=== PATIENT | male | born 1980 | race Caucasian/White ===

== ENCOUNTER 2018-07-31 12:18 | Emergency (ER) | payer SELFPAY ==
--- NOTE | 2018-07-31 12:44 | EDM.PDOC ---
ED HPI GENERAL MEDICAL PROBLEM - General Chief Complaint: ENT Problem Stated Complaint: FLU Time Seen by Provider: 07/31/18 12:43 Source of Information: Reports: Patient History Limitations: Reports: No Limitations - History of Present Illness INITIAL COMMENTS - FREE TEXT/NARRATIVE: HISTORY AND PHYSICAL: History of present illness: Patient is a 37-year-old male here with complaint of flulike symptoms 3 days. He states he's had vomiting, diarrhea, along with a mild cough, congestion. He denies fevers, chills, chest pain, shortness of breath, abdominal pain, urinary or bowel symptoms. Reports history of hypertension but otherwise healthy. Review of systems: As per history of present illness and below otherwise all systems reviewed and negative. Past medical history: As per history of present illness and as reviewed below otherwise noncontributory. Surgical history: As per history of present illness and as reviewed below otherwise noncontributory. Social history: No reported history of drug or alcohol abuse. Family history: As per history of present illness and as reviewed below otherwise noncontributory. Physical exam: General: Patient sitting comfortably in no acute distress and nontoxic appearing HEENT: Atraumatic, normocephalic, pupils reactive, negative for conjunctival pallor or scleral icterus, mucous membranes moist, throat clear, neck supple, nontender, trachea midline. No meningeal signs. Lungs: Clear to auscultation, breath sounds equal bilaterally, chest nontender. Heart: S1S2, regular, negative for clicks, rubs, or overt murmur. Abdomen: Soft, nondistended, nontender. Negative for masses or hepatosplenomegaly. Negative for costovertebral tenderness. Pelvis: Stable nontender. Genitourinary: Deferred. Rectal: Deferred. Extremities: Atraumatic, negative for cords or calf pain. Neurovascular unremarkable. Neuro: Awake, alert, oriented. Cranial nerves II through XII unremarkable. Cerebellum unremarkable. Motor and sensory unremarkable throughout. Exam nonfocal. Notes: Diagnostics: Influenza Therapeutics: None Prescriptions: Zofran Impression: Viral gastroenteritis Plan: 1. Drink plenty of small sips of fluids on the day and bland food as tolerated. Alternate Tylenol and Motrin as needed 2. Follow-up with primary care provider. 3. Return to ED as needed as discussed Definitive disposition and diagnosis as appropriate pending reevaluation and review of above. Generalized Pain Score (Numeric/FACES): 6 - Related Data Allergies Allergy/AdvReac Type Severity Reaction Status Date / Time No Known Allergies Allergy Verified 07/31/18 12:29 Home Meds: Home Meds Ondansetron [Zofran ODT] 4 mg PO Q6H PRN #10 tab.dis 07/31/18 [Rx] Past Medical History HEENT History: Reports: None Cardiovascular History: Reports: Hypertension Respiratory History: Reports: None Gastrointestinal History: Reports: None Genitourinary History: Reports: None Musculoskeletal History: Reports: None Neurological History: Reports: None Psychiatric History: Reports: None Endocrine/Metabolic History: Reports: None Hematologic History: Reports: None Immunologic History: Reports: None Oncologic (Cancer) History: Reports: None Dermatologic History: Reports: None - Infectious Disease History Infectious Disease History: Reports: Chicken Pox - Past Surgical History Head Surgeries/Procedures: Reports: None Social & Family History - Family History Family Medical History: Noncontributory - Tobacco Use Smoking Status *Q: Never Smoker Second Hand Smoke Exposure: No - Caffeine Use Caffeine Use: Reports: Coffee - Recreational Drug Use Recreational Drug Use: Yes Recreational Drug Type: Reports: Marijuana/Hashish ED ROS ENT - Review of Systems Review Of Systems: ROS reveals no pertinent complaints other than HPI. ED EXAM, ENT - Physical Exam Exam: See Below (See dictation) Course - Vital Signs Last Recorded V/S: Last Vital Signs Temp 97.6 F 07/31/18 12:29 Pulse 102 H 07/31/18 12:29 Resp 16 07/31/18 12:29 BP 152/91 H 07/31/18 12:29 Pulse Ox 96 07/31/18 12:29 Departure - Departure Time of Disposition: 13:15 Disposition: Home, Self-Care 01 Condition: Good Clinical Impression: Viral gastroenteritis - Discharge Information Prescriptions: Ondansetron [Zofran ODT] 4 mg PO Q6H PRN #10 tab.dis PRN Reason: Nausea/Vomiting Referrals: PCP,None [Primary Care Provider] - Forms: ED Department Discharge Additional Instructions: The following information is given to patients seen in the emergency department who are being discharged to home. This information is to outline your options for follow-up care. We provide all patients seen in our emergency department with a follow-up referral. The need for follow-up, as well as the timing and circumstances, are variable depending upon the specifics of your emergency department visit. If you don't have a primary care physician on staff, we will provide you with a referral. We always advise you to contact your personal physician following an emergency department visit to inform them of the circumstance of the visit and for follow-up with them and/or the need for any referrals to a consulting specialist. The emergency department will also refer you to a specialist when appropriate. This referral assures that you have the opportunity for follow-up care with a specialist. All of these measure are taken in an effort to provide you with optimal care, which includes your follow-up. Under all circumstances we always encourage you to contact your private physician who remains a resource for coordinating your care. When calling for follow-up care, please make the office aware that this follow-up is from your recent emergency room visit. If for any reason you are refused follow-up, please contact the [facility] Emergency Department at and asked to speak to the emergency department charge nurse. [facility] [address] [place] [id number] [address] [address] 1. Drink plenty of small sips of fluids on the day and bland food as tolerated. Alternate Tylenol and Motrin as needed 2. Follow-up with primary care provider. 3. Return to ED as needed as discussed
== END 2018-07-31 13:45 | disposition home or self-care (01) ==
LOC: MW.ED 12:18
DX: A08.4 Viral intestinal infection, unspecified (principal)
CPT/HCPCS: 87804; 99282; 99284

== ENCOUNTER 2018-09-26 16:50 | Emergency (ER) | payer SELFPAY ==
--- NOTE | 2018-09-26 16:56 | EDM.PDOC ---
ED HPI GENERAL MEDICAL PROBLEM - General Chief Complaint: General Stated Complaint: ANXIETY Time Seen by Provider: 09/26/18 16:55 Source of Information: Reports: Patient History Limitations: Reports: No Limitations - History of Present Illness INITIAL COMMENTS - FREE TEXT/NARRATIVE: HISTORY AND PHYSICAL: History of present illness: Patient is a 38-year-old male who presents to the emergency room today with complaints of panic attacks. Patient reports he has a history of PTSD, anxiety and depression. He has previously been on medications but failed to follow up to get them refilled. He also did behavioral and talk therapy previously. [place] and has yet to establish care with a primary care provider for evaluation/ management of his anxiety. He states that his panic attacks have been happening every one to 3 days lasting approximately 30 minutes to several hours. He states he is able to remove himself from the situation and calm himself down but it has been interfering with his ADLs. He denies any thoughts of self-harm or harm of others. Review of systems: As per history of present illness and below otherwise all systems reviewed and negative. Past medical history: As per history of present illness and as reviewed below otherwise noncontributory. Surgical history: As per history of present illness and as reviewed below otherwise noncontributory. Social history: See social history for further information Family history: As per history of present illness and as reviewed below otherwise noncontributory. Physical exam: General: Well-developed and well-nourished 38-year-old male. Alert and oriented. Nontoxic appearing and in no acute distress. HEENT: Atraumatic, normocephalic, pupils equal and reactive bilaterally, negative for conjunctival pallor or scleral icterus, mucous membranes moist, TMs normal bilaterally, throat clear, neck supple, nontender, trachea midline. No drooling or trismus noted. No meningeal signs. No hot potato voice noted. Lungs: Clear to auscultation, breath sounds equal bilaterally, chest nontender. Heart: S1S2, regular rate and rhythm without overt murmur Abdomen: Soft, nondistended, nontender. Negative for masses or hepatosplenomegaly. Negative for costovertebral tenderness. Pelvis: Stable nontender. Genitourinary: Deferred. Rectal: Deferred. Skin: Intact, warm, dry. No lesions or rashes noted. Extremities: Atraumatic, moves all extremities per self without difficulty or deficits, negative for cords or calf pain. Neurovascular unremarkable. Neuro: Awake, alert, oriented. Cranial nerves II through XII unremarkable. Cerebellum unremarkable. Motor and sensory unremarkable throughout. Exam nonfocal. Notes: I did offer to do routine lab work including a TSH which he declines at this time. We discussed the need for appropriate follow-up and management with primary care. We'll give him the numbers for this for follow-up. Supportive care measures were reviewed and discussed. Voices understanding and is agreeable to plan of care. Denies any further questions or concerns at this time. Diagnostics: None Therapeutics: None Prescription: Ativan 0.5mg PRN (#8) Impression: Anxiety History of PTSD Plan: 1. Take medication as directed. 2. Establish care with a primary care provider as we discussed. Return to the ED as needed and as discussed. Definitive disposition and diagnosis as appropriate pending reevaluation and review of above. - Related Data Allergies Allergy/AdvReac Type Severity Reaction Status Date / Time No Known Allergies Allergy Verified 07/31/18 12:29 Home Meds: Home Meds . [No Known Home Meds] 09/26/18 [History] Past Medical History HEENT History: Reports: None Cardiovascular History: Reports: Hypertension Respiratory History: Reports: None Gastrointestinal History: Reports: None Genitourinary History: Reports: None Musculoskeletal History: Reports: None Neurological History: Reports: None Psychiatric History: Reports: None Endocrine/Metabolic History: Reports: None Hematologic History: Reports: None Immunologic History: Reports: None Oncologic (Cancer) History: Reports: None Dermatologic History: Reports: None - Infectious Disease History Infectious Disease History: Reports: Chicken Pox - Past Surgical History Head Surgeries/Procedures: Reports: None Social & Family History - Family History Family Medical History: Noncontributory - Caffeine Use Caffeine Use: Reports: Coffee ED ROS GENERAL - Review of Systems Review Of Systems: ROS reveals no pertinent complaints other than HPI. ED EXAM, GENERAL - Physical Exam Exam: See Below (See dictation) Course - Vital Signs Last Recorded V/S: Last Vital Signs Temp 98.2 F 09/26/18 17:19 Pulse 75 09/26/18 17:19 Resp 16 09/26/18 17:19 BP 151/93 H 09/26/18 17:19 Pulse Ox 97 09/26/18 17:19 Departure - Departure Time of Disposition: 17:36 Disposition: Home, Self-Care 01 Clinical Impression: Anxiety, History of posttraumatic stress disorder (PTSD) - Discharge Information Instructions: Panic Attack, [id number] Referrals: PCP,Unknown [Primary Care Provider] - Forms: ED Department Discharge Additional Instructions: The following information is given to patients seen in the emergency department who are being discharged to home. This information is to outline your options for follow-up care. We provide all patients seen in our emergency department with a follow-up referral. The need for follow-up, as well as the timing and circumstances, are variable depending upon the specifics of your emergency department visit. If you don't have a primary care physician on staff, we will provide you with a referral. We always advise you to contact your personal physician following an emergency department visit to inform them of the circumstance of the visit and for follow-up with them and/or the need for any referrals to a consulting specialist. The emergency department will also refer you to a specialist when appropriate. This referral assures that you have the opportunity for follow-up care with a specialist. All of these measure are taken in an effort to provide you with optimal care, which includes your follow-up. Under all circumstances we always encourage you to contact your private physician who remains a resource for coordinating your care. When calling for follow-up care, please make the office aware that this follow-up is from your recent emergency room visit. If for any reason you are refused follow-up, please contact the [facility] Emergency Department at and asked to speak to the emergency department charge nurse. [facility] Primary [facility] [address] [place] [id number] [address] 1. Take medication as directed. 2. Establish care with a primary care provider as we discussed. Return to the ED as needed and as discussed.
== END 2018-09-26 18:00 | disposition home or self-care (01) ==
LOC: MW.ED 16:50
DX: F41.9 Anxiety disorder, unspecified (principal); I10 Essential (primary) hypertension; Z86.59 Personal history of other mental and behavioral disorders
CPT/HCPCS: 99282; 99283

== ENCOUNTER 2018-10-31 12:54 | Emergency (ER) | payer SELFPAY ==
--- NOTE | 2018-10-31 13:22 | EDM.PDOC ---
ED HPI GENERAL MEDICAL PROBLEM - General Chief Complaint: Back Pain or Injury Stated Complaint: BACK PAIN Time Seen by Provider: 10/31/18 13:20 Source of Information: Reports: Patient - History of Present Illness INITIAL COMMENTS - FREE TEXT/NARRATIVE: HISTORY AND PHYSICAL: History of present illness: []Patient presents with low back pain left greater than right for a week denies injury or trauma, he does work at [employer] doing a lot of lifting as well as he lift weights, he is uncertain of the exact etiology of the pain is he does not associate with any particular injury pain began insidiously over couple of days waxes and wanes in severity left side radiating to the bottom worsened with movement he is able to bend at the waist and touch his knees before pain stops him from going further No footdrop saddle anesthesia bowel or urine symptoms Review of systems: As per history of present illness and below otherwise all systems reviewed and negative. Past medical history: As per history of present illness and as reviewed below otherwise noncontributory. Surgical history: As per history of present illness and as reviewed below otherwise noncontributory. Social history: No reported history of drug or alcohol abuse. Family history: As per history of present illness and as reviewed below otherwise noncontributory. Physical exam: HEENT: Atraumatic, normocephalic, pupils reactive, negative for conjunctival pallor or scleral icterus, mucous membranes moist, throat clear, neck supple, nontender, trachea midline. Lungs: Clear to auscultation, breath sounds equal bilaterally, chest nontender. Heart: S1S2, regular, negative for clicks, rubs, or JVD. Abdomen: Soft, nondistended, nontender. Negative for masses or hepatosplenomegaly. Negative for costovertebral tenderness. Pelvis: Stable nontender. Genitourinary: Deferred. Rectal: Deferred. Extremities: Atraumatic, negative for cords or calf pain. Neurovascular unremarkable. No radiculopathy with straight-leg raise Neuro: Awake, alert, oriented. Cranial nerves II through XII unremarkable. Cerebellum unremarkable. Motor and sensory unremarkable throughout. Exam nonfocal. Diagnostics: [1 bar spine 3 views ] Therapeutics: [Cataflam Flexeril ] Impression: [ para spinous muscle spasm ] left sciatic distribution pain Definitive disposition and diagnosis as appropriate pending reevaluation and review of above. lower back Pain Score (Numeric/FACES): 7 - Related Data Allergies Allergy/AdvReac Type Severity Reaction Status Date / Time No Known Allergies Allergy Verified 07/31/18 12:29 Home Meds: Home Meds . [No Known Home Meds] 10/31/18 [History] Past Medical History HEENT History: Reports: None Cardiovascular History: Reports: Hypertension Respiratory History: Reports: None Gastrointestinal History: Reports: None Genitourinary History: Reports: None Musculoskeletal History: Reports: None Neurological History: Reports: None Psychiatric History: Reports: None Endocrine/Metabolic History: Reports: None Hematologic History: Reports: None Immunologic History: Reports: None Oncologic (Cancer) History: Reports: None Dermatologic History: Reports: None - Infectious Disease History Infectious Disease History: Reports: Chicken Pox - Past Surgical History Head Surgeries/Procedures: Reports: None Social & Family History - Family History Family Medical History: Noncontributory - Caffeine Use Caffeine Use: Reports: Coffee ED ROS GENERAL - Review of Systems Review Of Systems: See Below ED EXAM, GENERAL - Physical Exam Exam: See Below Course - Vital Signs Last Recorded V/S: Last Vital Signs Temp 98.2 F 10/31/18 13:27 Pulse 90 10/31/18 13:27 Resp 18 10/31/18 13:27 BP 160/95 H 10/31/18 13:27 Pulse Ox 97 10/31/18 13:27 - Orders/Labs/Meds Meds: Medications Discontinued Medications Generic Name Dose Route Start Last Admin Trade Name Freq PRN Reason Stop Dose Admin Ketorolac Tromethamine 60 mg 10/31/18 13:46 Toradol IM 10/31/18 13:47 ONETIME ONE Departure - Departure Time of Disposition: 14:13 Disposition: Home, Self-Care 01 Condition: Good Clinical Impression: Low back pain, Spasm of lumbar paraspinous muscle - Discharge Information Referrals: PCP,None [Primary Care Provider] - Forms: ED Department Discharge Additional Instructions: The following information is given to patients seen in the emergency department who are being discharged to home. This information is to outline your options for follow-up care. We provide all patients seen in our emergency department with a follow-up referral. The need for follow-up, as well as the timing and circumstances, are variable depending upon the specifics of your emergency department visit. If you don't have a primary care physician on staff, we will provide you with a referral. We always advise you to contact your personal physician following an emergency department visit to inform them of the circumstance of the visit and for follow-up with them and/or the need for any referrals to a consulting specialist. The emergency department will also refer you to a specialist when appropriate. This referral assures that you have the opportunity for follow-up care with a specialist. All of these measure are taken in an effort to provide you with optimal care, which includes your follow-up. Under all circumstances we always encourage you to contact your private physician who remains a resource for coordinating your care. When calling for follow-up care, please make the office aware that this follow-up is from your recent emergency room visit. If for any reason you are refused follow-up, please contact the [facility] emergency department at and asked to speak to the emergency department charge nurse.
[2018-10-31] MEDS ORDERED: Ketorolac 60 MG/2 ML SDV IM ONE (13:46)
--- NOTE | 2018-10-31 14:06 | CR ---
Pain 3 views lumbar spine Findings: Normal height and alignment of the lumbar vertebral bodies. No fractures. No acute osseous abnormalities. Minimal disc degenerative change at L5-S1. No listhesis or spondylolysis. Dictated by Catalina Kruger MD @ Oct 31 2018 2:05PM Signed by Dr. Catalina Kruger @ Oct 31 2018 2:05PM
== END 2018-10-31 14:26 | disposition home or self-care (01) ==
LOC: MW.ED 12:54
DX: M54.5 Low back pain (principal); M62.830 Muscle spasm of back; I10 Essential (primary) hypertension
CPT/HCPCS: 72100; 72100-26; 99283; 99283-25

== ENCOUNTER 2018-11-23 14:05 | Emergency (ER) | payer SELFPAY ==
[2018-11-23] MEDS ORDERED: cloNIDine 0.1 MG Tab PO ONE (14:16)
--- NOTE | 2018-11-23 14:16 | EDM.PDOC ---
ED HPI GENERAL MEDICAL PROBLEM - General Chief Complaint: Cardiovascular Problem Stated Complaint: HYPERTENSION Time Seen by Provider: 11/23/18 14:16 Source of Information: Reports: Patient - History of Present Illness INITIAL COMMENTS - FREE TEXT/NARRATIVE: HISTORY AND PHYSICAL: History of present illness: [Patient with history of medication noncompliance and hypertension presents with hypertension, no fever nausea vomiting chills sweats no chest pain shortness breath headache dizziness palpitation no bowel or urine symptoms at current Patient is been off his medication of Norvasc 10 mg by mouth daily for 6 months ] Review of systems: As per history of present illness and below otherwise all systems reviewed and negative. Past medical history: As per history of present illness and as reviewed below otherwise noncontributory. Surgical history: As per history of present illness and as reviewed below otherwise noncontributory. Social history: No reported history of drug or alcohol abuse. Family history: As per history of present illness and as reviewed below otherwise noncontributory. Physical exam: HEENT: Atraumatic, normocephalic, pupils reactive, negative for conjunctival pallor or scleral icterus, mucous membranes moist, throat clear, neck supple, nontender, trachea midline. Lungs: Clear to auscultation, breath sounds equal bilaterally, chest nontender. Heart: S1S2, regular, negative for clicks, rubs, or JVD. Abdomen: Soft, nondistended, nontender. Negative for masses or hepatosplenomegaly. Negative for costovertebral tenderness. Pelvis: Stable nontender. Genitourinary: Deferred. Rectal: Deferred. Extremities: Atraumatic, negative for cords or calf pain. Neurovascular unremarkable. Neuro: Awake, alert, oriented. Cranial nerves II through XII unremarkable. Cerebellum unremarkable. Motor and sensory unremarkable throughout. Exam nonfocal. Diagnostics: [CBC CMP UA EKG ] Therapeutics: Catapres 0.1 by mouth now Norvasc 5 mg by mouth and 10 mg #30 no refill Impression: [Hypertension Medication noncompliance ] Definitive disposition and diagnosis as appropriate pending reevaluation and review of above. - Related Data Allergies Allergy/AdvReac Type Severity Reaction Status Date / Time No Known Allergies Allergy Verified 11/23/18 14:14 Home Meds: Home Meds . [No Known Home Meds] 10/31/18 [History] Past Medical History HEENT History: Reports: None Cardiovascular History: Reports: Hypertension Respiratory History: Reports: None Gastrointestinal History: Reports: None Genitourinary History: Reports: None Musculoskeletal History: Reports: None Neurological History: Reports: None Psychiatric History: Reports: None Endocrine/Metabolic History: Reports: None Hematologic History: Reports: None Immunologic History: Reports: None Oncologic (Cancer) History: Reports: None Dermatologic History: Reports: None - Infectious Disease History Infectious Disease History: Reports: Chicken Pox - Past Surgical History Head Surgeries/Procedures: Reports: None Social & Family History - Family History Family Medical History: Noncontributory - Caffeine Use Caffeine Use: Reports: Coffee ED ROS GENERAL - Review of Systems Review Of Systems: See Below ED EXAM, GENERAL - Physical Exam Exam: See Below Course - Vital Signs Last Recorded V/S: Last Vital Signs Temp 98.1 F 11/23/18 14:12 Pulse 104 H 11/23/18 14:12 Resp 16 11/23/18 14:12 BP 120/88 11/23/18 15:27 Pulse Ox 96 11/23/18 14:12 - Orders/Labs/Meds Orders: Active Orders 24 hr Category Date Time Status EKG Documentation Completion [RC] STAT Care 11/23/18 14:15 Active Enalaprilat [Vasotec IV] Med 11/23/18 15:07 Active 0.625 mg IVPUSH Q6H PRN Sodium Chloride 0.9% [Normal Saline] 1,000 ml Med 11/23/18 15:00 Active IV STAT amLODIPine [Norvasc] Med 11/23/18 15:30 Once 5 mg PO ONETIME ONE Medication Orders Amlodipine Besylate (Norvasc) 5 mg PO ONETIME ONE Stop: 11/23/18 15:31 Last Admin: 11/23/18 15:27 Dose: 5 mg Enalaprilat (Vasotec Iv) 0.625 mg IVPUSH Q6H PRN PRN Reason: Anxiety Sodium Chloride (Normal Saline) 1,000 mls @ 125 mls/hr IV STAT LEONIDAS Labs: Laboratory Tests 11/23/18 11/23/18 11/23/18 Range/Units 14:25 14:25 15:00 WBC 7.82 (4.0-11.0) K/uL RBC 5.17 (4.50-5.90) M/uL Hgb 16.0 (13.0-17.0) g/dL Hct 45.2 (38.0-50.0) % MCV 87.4 (80.0-98.0) fL MCH 30.9 (27.0-32.0) pg MCHC 35.4 (31.0-37.0) g/dL RDW Std Deviation 39.6 (28.0-62.0) fl RDW Coeff of Sandi 12 (11.0-15.0) % Plt Count 257 (150-400) K/uL MPV 8.70 (7.40-12.00) fL Neut % (Auto) 55.4 (48.0-80.0) % Lymph % (Auto) 35.7 (16.0-40.0) % [place] % (Auto) 7.5 (0.0-15.0) % Eos % (Auto) 1.3 (0.0-7.0) % Baso % (Auto) 0.1 (0.0-1.5) % Neut # (Auto) 4.3 (1.4-5.7) K/uL Lymph # (Auto) 2.8 H (0.6-2.4) K/uL [place] # (Auto) 0.6 (0.0-0.8) K/uL Eos # (Auto) 0.1 (0.0-0.7) K/uL Baso # (Auto) 0.0 (0.0-0.1) K/uL Nucleated RBC % 0.0 /100WBC Nucleated RBCs # 0 K/uL Sodium 141 (136-148) mmol/L Potassium 4.0 (3.5-5.1) mmol/L Chloride 106 (98-107) mmol/L Carbon Dioxide 25.4 (21.0-32.0) mmol/L BUN 16 (7.0-18.0) mg/dL Creatinine 1.3 (0.8-1.3) mg/dL Est Cr Clr Drug Dosing 77.04 mL/min Estimated GFR (MDRD) > 60.0 ml/min Glucose 107 H (74-106) mg/dL Calcium 9.0 (8.5-10.1) mg/dL Total Bilirubin 1.0 (0.2-1.0) mg/dL AST 26 (15-37) IU/L ALT 56 (14-63) IU/L Alkaline Phosphatase 79 (46-116) U/L Troponin I < 0.050 (0.000-0.056) ng/mL Total Protein 8.0 (6.4-8.2) g/dL Albumin 4.3 (3.4-5.0) g/dL Globulin 3.7 (2.6-4.0) g/dL Albumin/Globulin Ratio 1.2 (0.9-1.6) Urine Color YELLOW Urine Appearance CLEAR Urine pH 6.0 (5.0-8.0) Ur Specific [place] 1.025 (1.001-1.035) Urine Protein TRACE H (NEGATIVE) mg/dL Urine Glucose (UA) NEGATIVE (NEGATIVE) mg/dL Urine Ketones NEGATIVE (NEGATIVE) mg/dL Urine Occult Blood NEGATIVE (NEGATIVE) Urine Nitrite NEGATIVE (NEGATIVE) Urine Bilirubin NEGATIVE (NEGATIVE) Urine Urobilinogen 1.0 (<2.0) EU/dL Ur Leukocyte Esterase NEGATIVE (NEGATIVE) Urine RBC 0-1 (0-2/HPF) Urine WBC 0-2 (0-5/HPF) Ur Epithelial Cells RARE (NONE-FEW) Urine Bacteria FEW (NEGATIVE) Urine Mucus MANY (NONE-MOD) Urine Opiates Screen (NEGATIVE) Ur Oxycodone Screen (NEGATIVE) Urine Methadone Screen (NEGATIVE) Ur Barbiturates Screen (NEGATIVE) Ur Phencyclidine Scrn (NEGATIVE) Ur Amphetamine Screen (NEGATIVE) U Methamphetamines Scrn (NEGATIVE) U Benzodiazepines Scrn (NEGATIVE) U Cocaine Metab Screen (NEGATIVE) U Marijuana (THC) Screen (NEGATIVE) 11/23/18 Range/Units 15:00 WBC (4.0-11.0) K/uL RBC (4.50-5.90) M/uL Hgb (13.0-17.0) g/dL Hct (38.0-50.0) % MCV (80.0-98.0) fL MCH (27.0-32.0) pg MCHC (31.0-37.0) g/dL RDW Std Deviation (28.0-62.0) fl RDW Coeff of Sandi (11.0-15.0) % Plt Count (150-400) K/uL MPV (7.40-12.00) fL Neut % (Auto) (48.0-80.0) % Lymph % (Auto) (16.0-40.0) % [place] % (Auto) (0.0-15.0) % Eos % (Auto) (0.0-7.0) % Baso % (Auto) (0.0-1.5) % Neut # (Auto) (1.4-5.7) K/uL Lymph # (Auto) (0.6-2.4) K/uL [place] # (Auto) (0.0-0.8) K/uL Eos # (Auto) (0.0-0.7) K/uL Baso # (Auto) (0.0-0.1) K/uL Nucleated RBC % /100WBC Nucleated RBCs # K/uL Sodium (136-148) mmol/L Potassium (3.5-5.1) mmol/L Chloride (98-107) mmol/L Carbon Dioxide (21.0-32.0) mmol/L BUN (7.0-18.0) mg/dL Creatinine (0.8-1.3) mg/dL Est Cr Clr Drug Dosing mL/min Estimated GFR (MDRD) ml/min Glucose (74-106) mg/dL Calcium (8.5-10.1) mg/dL Total Bilirubin (0.2-1.0) mg/dL AST (15-37) IU/L ALT (14-63) IU/L Alkaline Phosphatase (46-116) U/L Troponin I (0.000-0.056) ng/mL Total Protein (6.4-8.2) g/dL Albumin (3.4-5.0) g/dL Globulin (2.6-4.0) g/dL Albumin/Globulin Ratio (0.9-1.6) Urine Color Urine Appearance Urine pH (5.0-8.0) Ur Specific [place] (1.001-1.035) Urine Protein (NEGATIVE) mg/dL Urine Glucose (UA) (NEGATIVE) mg/dL Urine Ketones (NEGATIVE) mg/dL Urine Occult Blood (NEGATIVE) Urine Nitrite (NEGATIVE) Urine Bilirubin (NEGATIVE) Urine Urobilinogen (<2.0) EU/dL Ur Leukocyte Esterase (NEGATIVE) Urine RBC (0-2/HPF) Urine WBC (0-5/HPF) Ur Epithelial Cells (NONE-FEW) Urine Bacteria (NEGATIVE) Urine Mucus (NONE-MOD) Urine Opiates Screen NEGATIVE (NEGATIVE) Ur Oxycodone Screen NEGATIVE (NEGATIVE) Urine Methadone Screen NEGATIVE (NEGATIVE) Ur Barbiturates Screen NEGATIVE (NEGATIVE) Ur Phencyclidine Scrn NEGATIVE (NEGATIVE) Ur Amphetamine Screen NEGATIVE (NEGATIVE) U Methamphetamines Scrn NEGATIVE (NEGATIVE) U Benzodiazepines Scrn NEGATIVE (NEGATIVE) U Cocaine Metab Screen NEGATIVE (NEGATIVE) U Marijuana (THC) Screen POSITIVE (NEGATIVE) Meds: Medications Generic Name Dose Route Start Last Admin Trade Name Freq PRN Reason Stop Dose Admin Amlodipine Besylate 5 mg 11/23/18 15:30 11/23/18 15:27 Norvasc PO 11/23/18 15:31 5 mg ONETIME ONE Administration Enalaprilat 0.625 mg 11/23/18 15:07 Vasotec Iv IVPUSH Q6H PRN Anxiety Sodium Chloride 1,000 mls @ 125 mls/hr 11/23/18 15:00 Normal Saline IV STAT LEONIDAS Discontinued Medications Generic Name Dose Route Start Last Admin Trade Name Freq PRN Reason Stop Dose Admin Amlodipine Besylate 5 mg 11/23/18 15:18 Norvasc PO 11/23/18 15:19 ONETIME ONE Clonidine HCl 0.1 mg 11/23/18 14:16 11/23/18 14:22 Catapres PO 11/23/18 14:17 0.1 mg ONETIME ONE Administration Labetalol HCl 10 mg 11/23/18 14:55 Normodyne IVPUSH 11/23/18 14:56 ONETIME ONE Protocol Departure - Departure Time of Disposition: 15:30 Disposition: Home, Self-Care 01 Condition: Good Clinical Impression: Hypertension, Noncompliance with medication regimen Referrals: PCP,None [Primary Care Provider] - Forms: ED Department Discharge Additional Instructions: Medication as prescribed Return if symptoms persist or worsen Follow up with [facility] in 2 weeks sooner as needed [facility] - Primary Care [address] [place] [address] The following information is given to patients seen in the emergency department who are being discharged to home. This information is to outline your options for follow-up care. We provide all patients seen in our emergency department with a follow-up referral. The need for follow-up, as well as the timing and circumstances, are variable depending upon the specifics of your emergency department visit. If you don't have a primary care physician on staff, we will provide you with a referral. We always advise you to contact your personal physician following an emergency department visit to inform them of the circumstance of the visit and for follow-up with them and/or the need for any referrals to a consulting specialist. The emergency department will also refer you to a specialist when appropriate. This referral assures that you have the opportunity for follow-up care with a specialist. All of these measure are taken in an effort to provide you with optimal care, which includes your follow-up. Under all circumstances we always encourage you to contact your private physician who remains a resource for coordinating your care. When calling for follow-up care, please make the office aware that this follow-up is from your recent emergency room visit. If for any reason you are refused follow-up, please contact the [facility] emergency department at and asked to speak to the emergency department charge nurse. - My Orders Last 24 Hours: My Active Orders 11/23/18 14:15 EKG Documentation Completion [RC] STAT 11/23/18 15:00 Sodium Chloride 0.9% [Normal Saline] 1,000 ml IV STAT 11/23/18 15:07 Enalaprilat [Vasotec IV] 0.625 mg IVPUSH Q6H PRN 11/23/18 15:30 amLODIPine [Norvasc] 5 mg PO ONETIME ONE - Assessment/Plan Last 24 Hours: My Active Orders 11/23/18 14:15 EKG Documentation Completion [RC] STAT 11/23/18 15:00 Sodium Chloride 0.9% [Normal Saline] 1,000 ml IV STAT 11/23/18 15:07 Enalaprilat [Vasotec IV] 0.625 mg IVPUSH Q6H PRN 11/23/18 15:30 amLODIPine [Norvasc] 5 mg PO ONETIME ONE
[2018-11-23] MEDS ORDERED: Labetalol 100 MG/20 ML MDV IVPUSH ONE (14:55)
[2018-11-23] MEDS ORDERED: Sodium Chloride 0.9% 1,000 ML IV SCH (15:00)
[2018-11-23 15:04] LABS: CHLORIDE,CL 106 mmol/L (98-107); SODIUM,NA 141 mmol/L (136-148)
[2018-11-23] MEDS ORDERED: Enalaprilat 1.25 MG/ML SDV IVPUSH PRN (15:07)
[2018-11-23] MEDS ORDERED: amLODIPine 5 MG Tab PO ONE ×2 (15:18→15:30)
== END 2018-11-23 15:50 | disposition home or self-care (01) ==
LOC: MW.ED 14:05
DX: I10 Essential (primary) hypertension (principal); Z91.14 Patient's other noncompliance with medication regimen
CPT/HCPCS: 36415; 80053; 80305; 81001; 84484; 85025; 93005; 99285; A9270; 99283

== ENCOUNTER 2019-05-24 14:10 | Emergency (ER) | payer SELFPAY ==
[2019-05-24] MEDS ORDERED: Albuterol/Ipratropium 3.0-0.5 MG/3 ML Neb Soln NEB ONE (16:26)
[2019-05-24] MEDS ORDERED: methylPREDNISolone Sodium Succinate 125 MG/2 ML SDV IM ONE (16:26)
--- NOTE | 2019-05-24 16:33 | EDM.PDOC ---
ED HPI GENERAL MEDICAL PROBLEM - General Chief Complaint: Respiratory Problem Stated Complaint: COUGH Time Seen by Provider: 05/24/19 16:19 Source of Information: Reports: Patient History Limitations: Reports: No Limitations - History of Present Illness INITIAL COMMENTS - FREE TEXT/NARRATIVE: HISTORY AND PHYSICAL: History of present illness: Patient is a 38-year-old male who presents to the ED today with concern of cough x2 weeks. Patient states initially when the cough started he also had a fever but has not had a fever since. Patient states he does smoke marijuana but has not been able to smoke since the onset of cough stating that it makes the cough worse. Patient states he has a history of hypertension but denies any other health history. Patient denies any other symptoms or concerns. Patient denies fever, chills, chest pain, shortness of breath. Denies headache, neck stiff ness, change in vision, syncope, or near syncope. Denies nausea, vomiting, abdominal pain, diarrhea, constipation, or dysuria. Has not noted any blood in urine or stool. Patient has been eating and drinking appropriately. Review of systems: As per history of present illness and below otherwise all systems reviewed and negative. Past medical history: As per history of present illness and as reviewed below otherwise noncontributory. Surgical history: As per history of present illness and as reviewed below otherwise noncontributory. Social history: See social history for further information Family history: As per history of present illness and as reviewed below otherwise noncontributory. Physical exam: General: Patient is alert, oriented, and in no acute distress. Patient sitting comfortably on exam table. HEENT: Atraumatic, normocephalic, pupils equal and reactive bilaterally, negative for conjunctival pallor or scleral icterus, mucous membranes moist, TMs normal bilaterally, throat clear, neck supple, nontender, trachea midline. No drooling or trismus noted. No meningeal signs. No hot potato voice noted. Lungs: Wheezing to auscultation of bilateral lung bases, breath sounds equal bilaterally, chest nontender. Heart: S1S2, regular rate and rhythm without overt murmur Abdomen: Soft, nondistended, nontender. Negative for masses or hepatosplenomegaly. Negative for costovertebral tenderness. Pelvis: Stable nontender. Genitourinary: Deferred. Rectal: Deferred. Skin: Intact, warm, dry. No lesions or rashes noted. Extremities: Atraumatic, negative for cords or calf pain. Neurovascular unremarkable. Neuro: Awake, alert, oriented. Cranial nerves II through XII unremarkable. Cerebellum unremarkable. Motor and sensory unremarkable throughout. Exam nonfocal. Notes: Discussed importance for follow-up with a primary care provider. Voices understanding and is agreeable to plan of care. Denies any further questions or concerns at this time. Diagnostics: Influenza, CBC, CMP, EKG, chest x-ray Therapeutics: DuoNeb, Solu-Medrol Prescription: Medrol Dosepak, pro-air inhaler Impression: Tracheobronchitis Plan: 1. Take medication as prescribed. You can alternate ibuprofen and Tylenol as directed for pain and discomfort. 2. Follow-up with your primary care provider as discussed. Return to the ED as needed and as discussed. Definitive disposition and diagnosis as appropriate pending reevaluation and review of above. - Related Data Allergies Allergy/AdvReac Type Severity Reaction Status Date / Time No Known Allergies Allergy Verified 11/23/18 14:14 Home Meds: Home Meds . [No Known Home Meds] 10/31/18 [History] Past Medical History HEENT History: Reports: None Cardiovascular History: Reports: Hypertension Respiratory History: Reports: None Gastrointestinal History: Reports: None Genitourinary History: Reports: None Musculoskeletal History: Reports: None Neurological History: Reports: None Psychiatric History: Reports: None Endocrine/Metabolic History: Reports: None Hematologic History: Reports: None Immunologic History: Reports: None Oncologic (Cancer) History: Reports: None Dermatologic History: Reports: None - Infectious Disease History Infectious Disease History: Reports: None - Past Surgical History Head Surgeries/Procedures: Reports: None Social & Family History - Family History Family Medical History: Noncontributory - Tobacco Use Smoking Status *Q: Never Smoker - Caffeine Use Caffeine Use: Reports: Coffee - Recreational Drug Use Recreational Drug Type: Reports: Marijuana/Hashish Recreational Drug Use Frequency: Socially ED ROS GENERAL - Review of Systems Review Of Systems: Comprehensive ROS is negative, except as noted in HPI. ED EXAM, GENERAL - Physical Exam Exam: See Below (see dictation) Course - Vital Signs Last Recorded V/S: Last Vital Signs Temp 98.0 F 05/24/19 14:39 Pulse 91 05/24/19 14:39 Resp 18 05/24/19 14:39 BP 146/91 H 05/24/19 14:39 Pulse Ox 97 05/24/19 14:39 - Orders/Labs/Meds Orders: Active Orders 24 hr Category Date Time Status EKG Documentation Completion [RC] STAT Care 05/24/19 16:22 Active RT Aerosol Therapy [RC] ASDIRECTED Care 05/24/19 16:26 Active COMPREHENSIVE METABOLIC PN,CMP [CHEM] Stat Lab 05/24/19 17:04 Results UA RFX ROBERT AND CULT IF INDIC [URIN] Stat Lab 05/24/19 17:16 Received Labs: Laboratory Tests 05/24/19 05/24/19 Range/Units 17:04 17:04 WBC 9.71 (4.0-11.0) K/uL RBC 5.01 (4.50-5.90) M/uL Hgb 15.6 (13.0-17.0) g/dL Hct 44.1 (38.0-50.0) % MCV 88.0 (80.0-98.0) fL MCH 31.1 (27.0-32.0) pg MCHC 35.4 (31.0-37.0) g/dL RDW Std Deviation 39.3 (28.0-62.0) fl RDW Coeff of Sandi 12 (11.0-15.0) % Plt Count 343 (150-400) K/uL MPV 8.80 (7.40-12.00) fL Neut % (Auto) 62.3 (48.0-80.0) % Lymph % (Auto) 27.1 (16.0-40.0) % [place] % (Auto) 9.5 (0.0-15.0) % Eos % (Auto) 0.9 (0.0-7.0) % Baso % (Auto) 0.2 (0.0-1.5) % Neut # (Auto) 6.1 H (1.4-5.7) K/uL Lymph # (Auto) 2.6 H (0.6-2.4) K/uL [place] # (Auto) 0.9 H (0.0-0.8) K/uL Eos # (Auto) 0.1 (0.0-0.7) K/uL Baso # (Auto) 0.0 (0.0-0.1) K/uL Nucleated RBC % 0.0 /100WBC Nucleated RBCs # 0 K/uL Sodium 139 (136-148) mmol/L Potassium 4.1 (3.5-5.1) mmol/L Chloride 104 (98-107) mmol/L Carbon Dioxide 27.2 (21.0-32.0) mmol/L BUN 13 (7.0-18.0) mg/dL Creatinine 1.1 (0.8-1.3) mg/dL Est Cr Clr Drug Dosing 91.05 mL/min Estimated GFR (MDRD) > 60.0 ml/min Glucose 96 (74-106) mg/dL Calcium 8.7 (8.5-10.1) mg/dL Total Bilirubin 0.3 (0.2-1.0) mg/dL ALT 46 (14-63) IU/L Alkaline Phosphatase 80 (46-116) U/L Total Protein 7.7 (6.4-8.2) g/dL Albumin 3.7 (3.4-5.0) g/dL Globulin 4.0 (2.6-4.0) g/dL Albumin/Globulin Ratio 0.9 (0.9-1.6) Meds: Medications Discontinued Medications Generic Name Dose Route Start Last Admin Trade Name Freq PRN Reason Stop Dose Admin Albuterol/Ipratropium 3 ml 05/24/19 16:26 05/24/19 16:57 Duoneb 3.0-0.5 Mg/3 Ml NEB 05/24/19 16:27 3 ml ONETIME ONE Administration Methylprednisolone Sodium Succinate 125 mg 05/24/19 16:26 05/24/19 16:54 Solu-Medrol IM 05/24/19 16:27 125 mg ONETIME ONE Administration Departure - Departure Time of Disposition: 17:50 Disposition: Home, Self-Care 01 Clinical Impression: Tracheobronchitis - Discharge Information Referrals: PCP,None [Primary Care Provider] - Forms: ED Department Discharge Additional Instructions: The following information is given to patients seen in the emergency department who are being discharged to home. This information is to outline your options for follow-up care. We provide all patients seen in our emergency department with a follow-up referral. The need for follow-up, as well as the timing and circumstances, are variable depending upon the specifics of your emergency department visit. If you don't have a primary care physician on staff, we will provide you with a referral. We always advise you to contact your personal physician following an emergency department visit to inform them of the circumstance of the visit and for follow-up with them and/or the need for any referrals to a consulting specialist. The emergency department will also refer you to a specialist when appropriate. This referral assures that you have the opportunity for follow-up care with a specialist. All of these measure are taken in an effort to provide you with optimal care, which includes your follow-up. Under all circumstances we always encourage you to contact your private physician who remains a resource for coordinating your care. When calling for follow-up care, please make the office aware that this follow-up is from your recent emergency room visit. If for any reason you are refused follow-up, please contact the [facility] Emergency Department at and asked to speak to the emergency department charge nurse. [facility] Primary Care [address] [place] [id number] [place] [address] 1. Take medication as prescribed. You can alternate ibuprofen and Tylenol as directed for pain and discomfort. 2. Follow-up with your primary care provider as discussed. Return to the ED as needed and as discussed. Sepsis Event Note - Evaluation Sepsis Screening Result: No Definite Risk - Focused Exam Vital Signs: Vital Signs Temp Pulse Resp BP Pulse Ox 05/24/19 14:39 98.0 F 91 18 146/91 H 97 Date Exam was Performed: 05/24/19 Time Exam was Performed: 17:50 - My Orders Last 24 Hours: My Active Orders 05/24/19 16:22 EKG Documentation Completion [RC] STAT 05/24/19 16:26 RT Aerosol Therapy [RC] ASDIRECTED 05/24/19 17:04 COMPREHENSIVE METABOLIC PN,CMP [CHEM] Stat 05/24/19 17:16 UA RFX ROBERT AND CULT IF INDIC [URIN] Stat - Assessment/Plan Last 24 Hours: My Active Orders 05/24/19 16:22 EKG Documentation Completion [RC] STAT 05/24/19 16:26 RT Aerosol Therapy [RC] ASDIRECTED 05/24/19 17:04 COMPREHENSIVE METABOLIC PN,CMP [CHEM] Stat 05/24/19 17:16 UA RFX ROBERT AND CULT IF INDIC [URIN] Stat
--- NOTE | 2019-05-24 17:42 | CR ---
INDICATION: Cough COMPARISON: None TECHNIQUE: Frontal and lateral views of the chest FINDINGS: The lungs are clear. There is no pleural effusion or pneumothorax. The cardiomediastinal silhouette is normal. The osseous structures are unremarkable. IMPRESSION: No acute intrathoracic process. Dictated by Berkley Dill MD @ May 24 2019 5:39PM Signed by Dr. Berkley Dill @ May 24 2019 5:39PM
[2019-05-24 17:46] LABS: BLOOD UREA NITROGEN,BUN 13 mg/dL (7.0-18.0); CARBON DIOXIDE,CO2 27.2 mmol/L (21.0-32.0); CHLORIDE,CL 104 mmol/L (98-107); GLUCOSE RANDOM 96 mg/dL (74-106); POTASSIUM,K 4.1 mmol/L (3.5-5.1); SODIUM,NA 139 mmol/L (136-148)
== END 2019-05-24 18:15 | disposition home or self-care (01) ==
LOC: MW.ED 14:10
DX: J40 Bronchitis, not specified as acute or chronic (principal); I10 Essential (primary) hypertension
CPT/HCPCS: 36415; 71046; 80053; 81003; 85025; 87804; 93005; 96372; 99284; J2930; 99283; J7620-GY